=== PATIENT | female | born 1965 | race Caucasian/White ===

== ENCOUNTER → 2019-12-27 | Outpatient (CLI) | payer BC ==
[~2019-12-27] MED LIST: CALCIUM 1,0001 EACH PO; CHOL10002; DAILY MULTIPLE1 EACH PO; GLUC500 PO; Natural Vita200 UNIT; OXYACE5T PO
== END | disposition home or self-care (01) ==
LOC: LAB SHORT 08:00 → PLD 08:00
DX: L57.0 Actinic keratosis (principal)
CPT/HCPCS: 88305